=== PATIENT | male | born 1955 | race Caucasian/White ===

== ENCOUNTER 2024-12-27 12:31 | Emergency (ER) | payer MEDICARE, SELFPAY ==
[2024-12-27 12:46] VITALS: BP 135/97; PULSE 63; TEMP 36.4; O2SAT 98; BMI 36.5
--- NOTE | 2024-12-27 13:44 | ED.GENADUL1 ---
HPI HPI - General Adult General Chief complaint: Extremity Problem, Nontraumatic Stated complaint: l LEG PAIN Time Seen by Provider: 12/27/24 12:34 Source: patient and family Mode of arrival: walk-in Limitations: no limitations History of Present Illness HPI narrative: Patient is a 69-year-old male Emergency Department today for evaluation concerns for pain to his left leg. 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 He states this morning he woke up with pain to a focal area over the posterior left lower leg. He otherwise denies any injuries. He states he did have some cramping to this leg and additionally had a sharp shooting pain to the back of the left lower leg. He reports this is overall improved some since taking some aspirin. Related Data Allergies Allergy/AdvReac Type Severity Reaction Status Date / Time No Known Drug Allergies Allergy Verified 12/27/24 12:50 Review of Systems ROS Status of ROS 10 or more systems reviewed and unremarkable except as noted in history and below PFSH PFSH Social History Little interest or pleasure in doing things: not at all Feeling down, depressed, or hopeless: not at all Exam Constitutional Vital Signs, click to edit/add: Last Vital Signs Temp 97.6 F 12/27/24 12:46 Pulse 63 12/27/24 12:46 Resp 18 12/27/24 12:46 BP 135/97 H 12/27/24 12:46 Pulse Ox 98 12/27/24 12:46 O2 Del Method Room Air 12/27/24 12:46 Common normals: no apparent distress, oriented x3, alert and well nourished General appearance: cooperative and comfortable Orientation/consciousness: Yes awake HENAR Common normals: normocephalic Mouth: oral and palatal mucosa normal Eye Common normals: EOMs intact bilaterally and conjunctivae normal Chest Common normals: inspection of chest normal Respiratory Common normals: normal respiratory effort Auscultation: clear to auscultation bilaterally Cardio Common normals: regular rate and regular rhythm Extremity Common normals: full ROM and normal capillary refill General: other findings (+ Discomfort with palpation over posterior L lower leg) Neuro Common normals: oriented x3 and moves all extremities Gait (neuro): normal gait Psych Common normals: mental status grossly normal Course Vital Signs Vital signs: Vital Signs Temperature 97.6 F 12/27/24 12:46 Pulse Rate 63 12/27/24 12:46 Respiratory Rate 18 12/27/24 12:46 Blood Pressure 135/97 H 12/27/24 12:46 Pulse Oximetry 98 12/27/24 12:46 Oxygen Delivery Method Room Air 12/27/24 12:46 Temperature 97.6 F 12/27/24 12:46 Pulse Rate 63 12/27/24 12:46 Respiratory Rate 18 12/27/24 12:46 Blood Pressure 135/97 H 12/27/24 12:46 Pulse Oximetry 98 12/27/24 12:46 Oxygen Delivery Method Room Air 12/27/24 12:46 Medical Decision Making MDM Narrative Medical decision making narrative: Well-appearing 69-year-old who presented to the emergency department today for evaluation of concerns for sudden onset of pain and cramping to the posterior and distal left lower leg. Initial examination vital signs overall stable. No concerning neurovascular motor findings on exam. Low clinical suspicion for DVT. He does not appear to be exhibiting any ischemic symptoms and does appear euvolemic on exam. Patient and his who was present at the bedside consideration for x-ray imaging of the left tib/fib to rule out any skeletal injury, discussed possible Doppler study to rule out DVT, additionally labs to rule out infectious etiology, anemia, electrolyte deficiencies -> would like to hold off for now and treat supportively for possible myalgia vs arthalgia. Follow-up with patient's primary care provider for reevaluation. If any worsening condition and when to consider reevaluation. Patient and his verbalized an understanding of this and are agreeable to plan to be discharged home Medical Records Medical records reviewed: Yes I reviewed the patient's medical records Discharge Plan Discharge Chief Complaint: Extremity Problem, Nontraumatic Clinical Impression: Myalgia, lower leg Patient Disposition: Home, Self-Care Print Language: Citizen Of [place] Instructions: Musculoskeletal Pain (ED) Additional Instructions: Continue Tylenol or ibuprofen as needed for any pain. Avoid aspirin unless you are prescribed this by your primary care provider rest, ice any sore areas. May use topicals such as IcyHot. Referrals: [facility] [Primary Care Provider, Family Practice] - 1 week
== END 2024-12-27 14:11 | disposition home or self-care (01) ==
PROVIDERS: Emergency Provider Emergency Medicine; PCP Family Medicine
DX: M79.18 Myalgia, other site (principal); M79.605 Pain in left leg; R25.2 Cramp and spasm
CPT/HCPCS: 99281